=== PATIENT | male | born 1935 | race Caucasian/White ===

== ENCOUNTER 2022-10-24 14:55 | Emergency (ER) | payer OTHER ==
[~2022-10-24] VITALS: Ht 182.9 cm; Wt 90.7 kg
[2022-10-24 15:07] VITALS: BP 155/88
--- NOTE | 2022-10-24 15:20 | NUR ---
PT W/C ASSISTED TO BED 3. Addendum: 10/24/22 at 1522 by [facility] BED 2
--- NOTE | 2022-10-24 16:20 | NUR ---
87 y/o male biba from home for urinary retention. Patient has 8/10 pain to pelvic area. Patient last urinated at 2100 on 10/23/22. Patient is noted to be dribbling scant amount of urine. Patient is noted with redness to left leg. 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
[2022-10-24 16:49] LABS: BASOPHILS # (AUTO) 0.1 K/uL (0.00-0.22); BASOPHILS % (AUTO) 0.6 % (0.0-2.0); EOSINOPHILS # (AUTO) 0.1 K/uL (0-0.4); EOSINOPHILS % (AUTO) 1.1 % (0.0-4.0); HEMATOCRIT 37.8 % (36-52); HEMOGLOBIN 12.3 g/dL (12.0-18.0); LYMPHOCYTES # (AUTO) 1.3 K/uL (2.0-11.5); MEAN CORPUSCULAR HEMOGLOBIN 29 pg (27-31); MEAN CORPUSCULAR HGB CONC 33 g/dL (33-37); MEAN CORPUSCULAR VOLUME 89.4 fL (80-94); MONOCYTES # (AUTO) 1.1 K/uL (0.8-1.0); MONOCYTES % (AUTO) 11.4 % (1.7-9.3); NEUTROPHILS # (AUTO) 6.8 K/uL (1.8-7.7); NEUTROPHILS % (AUTO) 72.9 % (42.2-75.2); PLATELET COUNT (AUTO) 199 K/uL (140-450); RED BLOOD CELL COUNT(AUTO) 4.22 MIL/uL (4.20-6.10); RED CELL DISTRIBUTION WIDTH 14.2 % (11.6-13.7); WHITE BLOOD COUNT (AUTO) 9.3 K/uL (4.8-10.8)
[2022-10-24 17:00] LABS: ANION GAP 10.5 (8-16); CARBON DIOXIDE 29.6 mmol/L (21-32); CHLORIDE 106 mmol/L (98-107); CREATININE 0.8 mg/dL (0.6-1.3); GLUCOSE 96 mg/dL (74-106); POTASSIUM 4.1 mmol/L (3.5-5.1); SODIUM SERUM 142 mmol/L (136-145); UREA NITROGEN, BLOOD 25 mg/dL (7-18)
--- NOTE | 2022-10-24 17:04 | NUR ---
Attempted to insert. Martinez unsuccesful Dr. Mims made aware.
[2022-10-24] MEDS ORDERED: DOCUSATE SODIUM 100 MG GELCAP PO PRN (17:30)
[2022-10-24] MEDS ORDERED: ACETAMINOPHEN 325 MG TAB PO PRN (17:30)
[2022-10-24] MEDS ORDERED: LORazepam 2 MG/ML VIAL IVP PRN (17:30)
[2022-10-24] MEDS ORDERED: ONDANSETRON 4 MG/2 ML VIAL IVP PRN (17:30)
[2022-10-24] MEDS ORDERED: MORPHINE SULFATE 2 MG/ML SYR IVP PRN (17:30)
[2022-10-24] MEDS ORDERED: ZOLPIDEM 10 MG TAB PO PRN (17:30)
[2022-10-24] MEDS ORDERED: MAG SULF 2000 MG/WATER PREMIX 50 ML IV PRN (17:30)
[2022-10-24] MEDS ORDERED: POTASSIUM CHLORIDE 10 MEQ TABER PO PRN (17:30)
--- NOTE | 2022-10-24 17:53 | NUR ---
PT MOVED TO ER BED 12
--- NOTE | 2022-10-24 18:21 | NUR ---
Coni-care provided, brief changed.
[2022-10-24] MEDS ORDERED: RIVA20TA PO (18:40)
[2022-10-24] MEDS ORDERED: METO50TE2 PO (18:40)
[2022-10-24] MEDS ORDERED: SIMV10TA92 PO (18:40)
[2022-10-24] MEDS ORDERED: SYN.1 PO (18:40)
--- NOTE | 2022-10-24 18:40 | NUR ---
med recon complete
--- NOTE | 2022-10-24 19:05 | NUR ---
Dr. Lauren at bedside.
--- NOTE | 2022-10-24 19:35 | NUR ---
URINARY CATH REPLACED BY . KRISTYN WALSH STATES PT CAN BE D/S IF POSSIBLE. WAS UPDATED, STATES IF WE CAN UNDO HER ORDERS IT IS OK. ORDER CARRIED OUT.
[2022-10-24 19:38] VITALS: BP 156/74
--- NOTE | 2022-10-24 20:53 | NUR ---
Patient discharged with v/s stable. Written and verbal after care instructions given and explained. Patient verbalized understanding. Ambulatory with steady gait. All questions addressed prior to discharge. Advised to follow up with PMD.
== END 2022-10-24 20:53 | disposition home or self-care (01) ==
LOC: MED 14:55 → MMU 17:28 → UNDOADMIN 17:28 → UNDODEPER 19:40 → MMU 20:53 → UNDODISIN 20:53
DX: R33.9 Retention of urine, unspecified (principal); Z20.822 Contact with and (suspected) exposure to COVID-19
CPT/HCPCS: 36415; 51702; 80048; 85025; 99285